=== PATIENT | female | born 1985 | race Caucasian/White ===

== ENCOUNTER → 2024-01-10 09:12 | Outpatient (BNVA) | payer OTHER, SELFPAY | PROVIDERS: PCP Nurse Practitioner; Visit Provider Nurse Practitioner | DX: Z13.6 Encounter for screening for cardiovascular disorders (principal) | CPT/HCPCS: 80053; 80061 ==

== ENCOUNTER → 2024-02-22 14:08 | Outpatient (BNVA) | payer OTHER, BC, SELFPAY | PROVIDERS: PCP Nurse Practitioner; Visit Provider Nurse Practitioner Women's Health | DX: N92.6 Irregular menstruation, unspecified (principal) | CPT/HCPCS: 81025 ==

== ENCOUNTER 2024-09-22 04:05 | Outpatient (CLI) | payer BC, MEDICAID, SELFPAY ==
[2024-09-22 04:05] VITALS: BMI 42.7
[2024-09-22 04:29] VITALS: BP 149/87; PULSE 75
[2024-09-22 04:44] VITALS: BP 148/87; PULSE 75
[2024-09-22 05:01] VITALS: BP 146/81; PULSE 70
[2024-09-22 05:09] VITALS: BP 140/79; PULSE 67
[2024-09-22 05:27] VITALS: BP 140/79; PULSE 67; O2SAT 100
== END 2024-09-22 05:27 | disposition home or self-care (01) ==
LOC: OPOB 04:11 → OBGYN 04:11
PROVIDERS: PCP Family Medicine; Visit Provider Family Medicine
DX: O26.899 Other specified pregnancy related conditions, unspecified trimester (principal); Z3A.00 Weeks of gestation of pregnancy not specified; M54.9 Dorsalgia, unspecified
CPT/HCPCS: 59025; 99211

== ENCOUNTER 2024-09-23 14:03 | Inpatient (IN) | payer BC, MEDICAID, SELFPAY ==
[2024-09-23] VITALS (29 sets, daily range): BP systolic 89–159; BP diastolic 50–99; PULSE 52–94; RESP 16–18; TEMP 36.7–36.9; O2SAT 96–98; BMI 39.6
[2024-09-23 13:35] LABS: Basophils % 0.2 %; Eosinophils # 0.5 10^3/uL (0.0-0.8); Eosinophils % 4.3 %; Lymphocytes # 2.1 10^3/uL (0.8-4.8); Mean Corpuscular HGB Conc 33.4 g/dL (30-55); Mean Corpuscular Hemoglobin 29.8 pg (27-33); Mean Corpuscular Volume 89.3 fl (85-98); Mean Platelet Volume 11.3 fL (7.4-10.4); Monocytes % 7.9 %; Neutrophils # 8.45 10^3/uL (1.8-7.7); Neutrophils % 69.4 %; Nucleated Red Blood Cells % 0 %; Platelet Count 196 10^3/cmm (157-399); Red Blood Count 4.59 10^6/uL (3.85-5.65); Red Cell Distribution Width 13.4 % (12.1-15.1); White Blood Count 12.17 10^3/uL (3.29-11.43)
[2024-09-23] MEDS: lactated ringers 1,000 ML 999 ML IV (13:59)
[2024-09-23] MEDS: famotidine 20 mg/2 mL INJ IVP (13:59)
[2024-09-23] MEDS: ceFAZolin 2,000 mg SDV 2000 MG IVP (14:00)
[2024-09-23] MEDS: metoclopramide 5 mg/mL SDV 2 mL 10 MG IVP (14:00)
--- NOTE | 2024-09-23 14:49 | P.HP_ITS ---
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 She was checked and found to grossly ruptured. Her cervix was 2 cm dilated. Her membranes ruptured several hours prior to arrival to hospital. Otherwise, other than her history of a section, and her advanced maternal age, her has been relatively unremarkable. She received care in her first [address] Díaz. She was desirous of doing a and switch to me because I was willing to consider . We had a long discussion concerning the pros and cons of VBACs versus repeat sections. At the end of that discussion, she does elected to proceed with a repeat section. We have discussed the risks of bleeding, infection, and damage to intra-abdominal organs earlier in her as well as today. We once again discussed the possibility of doing a today, and she is clear that she would rather proceed with a section. Present Details : 3 Para: 1 Labs Rubella: Immune RPR: Negative GBS: Negative Review of Systems 2 General: Reports: 10 or more systems reviewed and unremarkable except in HPI and below Const: Reports: fatigue; Denies: fever(s) Eyes: Denies: change in vision Card: Denies: chest pain Musc: Reports: back pain Jose/Lymph: Denies: easy bruising Medications/Allergies Home Medications ?Medication ?Instructions ?Recorded ?Confirmed ?Last Taken ?Type budesonide-formoterol HFA 160 2 puff inhalation Q12H # 10.2 grams 01/10/24 09/23/24 Unknown Rx mcg-4.5 mcg/actuation aerosol inhaler triamcinolone acetonide 0.1 % 1 applic topical DAILY P RN itching 01/10/24 09/23/24 Unknown Rx topical cream #30 grams Allergies Allergy/AdvReac Type Severity Reaction Status Date / Time seasonal Allergy Mild ALGY-Wheezi Uncoded 02/22/24 14:39 ng PFSH 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 Family History Other Adopted Social History Smoking and tobacco/nicotine status: never used tobacco/nicotine Alcohol intake: former Substance/Drug Use: unknown Adopted: Yes Caregiver/support person: No Lives independently: Yes Household members: significant other and children Housing: House Marital status: Life Partner Number of children: 1 service: No Current occupational status: unemployed Current occupational exposures/hazards: No Pets and animals: Yes Do you think of yourself as: Straight/Heterosexual Current gender identity: Female History History History 2 2 Term 1 0 Miscarriages/Ectopic 1 Living Children 1 Vitals/I&O/Wt Last Vital Signs Pulse 81 09/23/24 14:26 Resp 16 09/23/24 13:28 BP 137/84 09/23/24 14:26 O2 Del Method Room Air 09/23/24 13:18 Weight last 48 hrs Weight 231 lb Physical Exam 2 Const: COMMON NORMALS: patient oriented x3 and alert HENMT: COMMON NORMALS: moist oral mucous membranes HEAD & SCALP: normal to inspection Chest: COMMONS NORMALS: normal inspection of the chest Resp: COMMON NORMALS: clear to auscultation bilaterally AUSCULTATION: clear to auscultation bilaterally Cardio: COMMON NORMALS: regular rate and regular rhythm RATE: regular rate RHYTHM: regular rhythm GI: INSPECTION: Yes normal to inspection and Yes other (Gravid) Extremity: COMMON NORMALS: normal to inspection GENERAL: Yes edema (Trace) Neuro: COMMON NORMALS: patient oriented x3, moves all extremities and no sensory deficits noted SENSORIUM/ORIENTATION: Yes alert Psych: COMMON NORMALS: mental status grossly normal Skin: COMMON NORMALS: no rashes or lesions noted GENERAL SKIN EXAM: no rashes or lesions noted Data 09/23/24 13:20 Results Labs OB ([facility]): 2 Obstetrics 06/20/24 Blood Type B Positive 09/23/24 Antibody Screen Negative 09/23/24 Hct 41.0 % (36-47) 09/23/24 Hgb 13.70 g/dL (11.27-16.99) 09/23/24 Rho(D) Type Rh positive 09/23/24 Plt Count 196 10^3/cmm (157-399) 09/23/24 HCG, Qual Positive (Negative) H 02/22/24 A&P Assessment and plan (1) 39 weeks gestation of : We will proceed with a lower transverse section. The patient and her have no further questions and wished to proceed. (2) History of section: (3) Spontaneous rupture of membranes: PDMP PDMP Reviewed: Not Reviewed Attestations 2 Medical Necessity Statement*: I anticipate routine and post care Coding Level of Care Code Acute Code for Chg Fwd Diagnoses 39 weeks gestation of Z3A.39 History of section Z98.891 Spontaneous rupture of membranes
--- NOTE | 2024-09-23 14:50 | P.ANESUD_ITS ---
Pre-Anesthetic Update Pre-Anesthetic Assessment: Date of Surgery/Procedure: 09/23/24 Preop Maggy gnosis: repeat Any changes to Pre-Anesthetic Assessment?: No Last Intake: Intake Last Liquid Date 09/23/24 Last Liquid Time 10:30 Last Solid Date 09/22/24 Last Solid Time 23:30 Labs Last 48hrs: Short CBC 09/23/24 Range/Units 13:20 WBC 12.17 H (3.29-11.43) 10^ 3/uL Hgb 13.70 (11.27-16.99) g/ dL Hct 41.0 (36-47) % MCV 89.3 (85-98) fl Plt Count 196 (157-399) 10^3/c mm Neut % (Auto) 69.4 % Neut # (Auto) 8.45 H (1.8-7.7) 10^3/u L Blood Bank 09/23/24 13:20 Blood Type B Positive Rho(D) Type Rh positive Antibody Screen Negative Vitals: Pulse Rate 81 09/23/24 14:26 Respiratory Rate 16 09/23/24 13:28 Respiratory Effort Spontaneous, Non- Labored 09/23/24 13:18 Respiratory Depth Normal 09/23/24 13:18 Respiratory Patter n Normal 09/23/24 13:18 Blood Pressure 137/84 09/23/24 14:26 Oxygen Delivery Me thod Room Air 09/23/24 13:18 Exam: Pre-Anes Outpt Exam: alert and oriented x 3 Cardiac Studies: No Data to Display
--- NOTE | 2024-09-23 16:05 | PM.OP ---
Operative Report Date of procedure: September 23, 2024 Pre-op diagnosis: 1. 39-year-old 3 para 1-0-0-1 at 39 weeks and 5 days presenting with spontaneous rupture membranes 2. History of lower transverse section Post-op diagnosis: Same Procedure done: Repeat low-transverse section Specimens removed/disposition: 1. Female infant with a weight of 7 pounds 13 ounces and Apgars of 8 and 9 2. Placenta with a three-vessel cord delivered intact Surgeon: Trev Savage MD Estimated blood loss (mL): 800 Complications: None Procedure: The patient was brought back to the operating room where she was prepped and draped in usual sterile fashion. Anesthesia was found to be adequate. A lower transverse skin incision was then made with a #10 blade. I then dissected down to the underlying subcutaneous tissue until arriving at the prerectal fascia. The fascia was then nicked with the scalpel bilaterally. The fascial incisions were then carried laterally with Kiran scissors. Attention was then turned to the superior aspect of the incision which was grasped with kochers and tented up away from the underlying rectus abdominis muscles. The muscles were then dissected away from the fascia manually, and later with Kiran scissors. Attention was then turned to the inferior aspect of the incision, and the fascia was dissected away from the underlying muscle in similar fashion. The rectus abdominis muscles were then spread manually. The peritoneum was entered manually. Excellent visualization of the uterus was noted. A lower transverse uterine incision was then made with a #10 blade. Upon arriving at the intrauterine cavity, the uterine incision was then extended manually. The infant was noted to be in vertex position. The baby was delivered without difficulty. After delivery of the head, the mouth and nose were suctioned at the site of the incision. There was no meconium. There was a nuchal cord x 1 which was easily reduced prior to delivery of the head. The baby was then completely delivered and placed on the abdomen. The cord was cut and clamped. The baby was then handed to the waiting nurse. The placenta was removed intact. The uterus was externalized. The intrauterine cavity was cleansed of any remaining debris. The uterine incision was reapproximated in 2 layers. The first layer was performed with 0 Vicryl in a running locked stitch. The second layer was an imbricating stitch also using 0 Vicryl. The uterus was replaced into the abdomen. The peritoneum was then irrigated with warm saline. I reexamined the uterine incision and found it to be hemostatic. The rectus abdominis muscles were then reapproximated using 0 Vicryl in a running stitch. The fascia was then reapproximated using 0 Vicryl in running stitch. The subcutaneous tissue was then reapproximated using 0 Vicryl in a running stitch. The skin was then reapproximated using 4-0 Vicryl in a running subcuticular stitch. A sterile dressing was placed. All counts were correct x2. Both the mother and baby were in stable condition.
--- NOTE | 2024-09-23 16:28 | PC.NURSE ---
1600 STILL IN OR
[2024-09-23] MEDS: ketorolac 30 mg/mL INJ IVP (22:26)
[2024-09-23] MEDS: docusate sodium 100 mg Capsule PO (22:26)
[2024-09-24 03:49] LABS: Hematocrit 36.3 % (36-47); Mean Corpuscular HGB Conc 33.9 g/dL (30-55); Mean Corpuscular Hemoglobin 30.8 pg (27-33); Mean Corpuscular Volume 90.8 fl (85-98); Mean Platelet Volume 10.7 fL (7.4-10.4); Platelet Count 184 10^3/cmm (157-399); Red Cell Distribution Width 13.2 % (12.1-15.1); White Blood Count 13.19 10^3/uL (3.29-11.43)
[2024-09-24] MEDS: ketorolac 30 mg/mL INJ IVP ×2 (04:19→11:12)
[2024-09-24 04:21] VITALS: BP 121/69; PULSE 75
[2024-09-24 04:23] VITALS: RESP 15; TEMP 36.9
[2024-09-24 09:19] VITALS: BP 132/76; PULSE 67
[2024-09-24] MEDS: PRENATAL VIT NO.130/IRON/FOLIC 1 EACH TABLET PO (09:20)
[2024-09-24] MEDS: docusate sodium 100 mg Capsule PO (09:20)
[2024-09-24] MEDS: ferrous sulfate EC 325 mg Tablet PO (09:20)
[2024-09-24 09:23] VITALS: TEMP 36.6
--- NOTE | 2024-09-24 17:39 | P.DS_ITS ---
Discharge Providers HAND TIRE TRIMMER Date of Admission: 09/23/24 14:03 Date of Discharge: 09/24/24 Attending Provider at Admission: Trev Savage MD Attending Provider at Discharge: Trev Savage MD Primary Care Provider: Trev Savage MD Diagnoses at Discharge Discharge Diagnosis (1) 39 weeks gestation of : Status: Acute (2) History of section: Status: Acute Permanent problem details: Primary performed in [place] for malpresentation. (3) Spontaneous rupture of membranes: Status: Acute Reason for Visit Reason for Visit: Poss SROM Hospital Course Hospital Course The patient presented to the hospital with spontaneous rupture membranes. Due to her history of section, a repeat section was performed. The was unremarkable. Her course was also unremarkable. Her bleeding was within normal limits. Her pain was well-controlled. She breast-fed well. Information Peripartum Data: Infant Delivery Method: Physical Exam Narrative: She is in no acute distress Lungs are clear auscultation bilaterally Her heart has a regular rate and rhythm Her fundus is below the umbilicus and firm Her dressing is clean, dry and intact Her extremities have trace edema Urinary Catheter Management: Campbell: Cath Placed During This Visit: yes, but has since been removed by the nurse Reason for Continuing Indwelling Catheter: Decision to DC Catheter Urinary Catheter Date of Insertion: 09/23/24 Urinary Catheter Time of Insertion: 15:00 Date Urinary Catheter Removed: 09/23/24 Time Urinary Catheter Discontinued: 22:35 History History History 2 Term 1 0 Miscarriages/Ectopic 1 Living Children 1 Discharge Data Studies Completed and Pending Laboratory Results WBC 13.19 10^3/uL (3.29-11.43) H 09/24/24 03:40 RBC 4.00 10^6/uL (3.85-5.65) 09/24/24 03:40 Hgb 12.30 g/dL (11.27-16.99) 09/24/24 03:40 Hct 36.3 % (36-47) 09/24/24 03:40 MCV 90.8 fl (85-98) 09/24/24 03:40 MCH 30.8 pg (27-33) 09/24/24 03:40 MCHC 33.9 g/dL (30-55) 09/24/24 03:40 RDW 13.2 % (12.1-15.1) 09/24/24 03:40 Plt Count 184 10^3/cmm (157-399) 09/24/24 03:40 MPV 10.7 fL (7.4-10.4) H 09/24/24 03:40 Neut % (Auto) 69.4 % 09/23/24 13:20 Lymph % (Auto) 17.0 % 09/23/24 13:20 [place] % (Auto) 7.9 % 09/23/24 13:20 Eos % (Auto) 4.3 % 09/23/24 13:20 Baso % (Auto) 0.2 % 09/23/24 13:20 Neut # (Auto) 8.45 10^3/uL (1.8-7.7) H 09/23/24 13:20 Lymph # (Auto) 2.1 10^3/uL (0.8-4.8) 09/23/24 13:20 [place] # (Auto) 1.0 10^3/uL (0.2-0.9) H 09/23/24 13:20 Eos # (Auto) 0.5 10^3/uL (0.0-0.8) 09/23/24 13:20 Baso # (Auto) 0.0 10^3/uL (0.0-0.1) 09/23/24 13:20 Nucleated RBC % (auto) 0 % 09/23/24 13:20 Nucleated RBCs # 0.0 /100WBC 09/23/24 13:20 Blood Type B Positive 09/23/24 13:20 Rho(D) Type Rh positive 09/23/24 13:20 Antibody Screen Negative 09/23/24 13:20 Vitals Last Vital Signs Temp 97.9 F 09/24/24 09:23 Pulse 67 09/24/24 09:19 Resp 15 09/24/24 04:23 BP 132/76 09/24/24 09:19 Pulse Ox 97 09/23/24 16:40 O2 Del Method Room Air 09/23/24 16:40 Results Labs OB ([facility]): Obstetrics US 06/20/24 Blood Type B Positive 09/23/24 Antibody Screen Negative 09/23/24 Hct 36.3 % (36-47) 09/24/24 Hgb 12.30 g/dL (11.27-16.99) 09/24/24 Rho(D) Type Rh positive 09/23/24 Plt Count 184 10^3/cmm (157-399) 09/24/24 HCG, Qual Positive (Negative) H 02/22/24 Discharge Plan Discharge Patient Disposition: Home Condition: Stable Prescriptions: New hydrocodone-acetaminophen 5-325 mg Tablet 1 tab PO Q6H PRN (Reason: Moderate To Severe Pain) Qty: 28 0RF docusate sodium 100 mg Capsule 100 mg PO BID Qty: 20 0RF Vitamin 27 mg iron- 800 mcg Tablet 1 tab PO DAILY Qty: 90 0RF ibuprofen 800 mg Tablet 800 mg PO TID Qty: 45 0RF Continued budesonide-formoterol 160-4.5 mcg/actuation HFA aerosol inhaler 2 puff inhalation Q12H Qty: 10.2 5RF Discontinued triamcinolone acetonide 0.1 % cream 1 applic topical DAILY PRN (Reason: itching) Qty: 30 0RF Rx Instructions: apply to arm when needed Discharge Orders: Discharge Order (Routine); Ordered 09/24/24 Ordered By: Trev Savage Referrals: Trev Savage MD [Primary Care Provider] - 7-10 days Discharge Diet: Usual diet Discharge Activity: Limit activity as instructed Patient Instructions: Depression (DC), Bleeding (DC), Opioid Safety (DC), Preeclampsia and Eclampsia After Delivery (GEN), Hemorrhage (DC), OB Discharge Report, OB Food/Drug Interaction Guide, OB Care at Home, Opioid Safety, OB Home Care, OB Vaginal Deliveries Discharge Attestations HAND TIRE TRIMMER Time Spent in Discharge Care*: less than 30 min Coding Level of Care Code Acute Code for Chg Fwd Diagnoses 39 weeks gestation of Z3A.39 History of section Z98.891 Spontaneous rupture of membranes
[2024-09-24 19:30] VITALS: BP 140/87; PULSE 92; RESP 16; TEMP 37
[2024-09-24 19:39] VITALS: BP 140/87; PULSE 92; RESP 16; TEMP 37
[2024-09-24] MEDS: acetaminophen 325 mg Tablet 650 MG PO (19:49)
== END 2024-09-24 20:05 | disposition home or self-care (01) | DRG 788 ==
LOC: OPOB 09-25 14:06
PROVIDERS: Admitting Provider Family Medicine; PCP Family Medicine; Visit Provider Family Medicine
PROC: 10D00Z1 Extraction of Products of Conception, Low, Open Approach (ICD-10-PCS; CPT 59514; principal; 2024-09-23 15:30)
DX: O34.211 Maternal care for low transverse scar from previous cesarean delivery (principal); N85.8 Other specified noninflammatory disorders of uterus; O69.81X0 Labor and delivery complicated by cord around neck, without compression, not applicable or unspecified; Z3A.39 39 weeks gestation of pregnancy; Z37.0 Single live birth
CPT/HCPCS: 36415; 51702; 59025; 59409; 85025; 85027; 86850; 86900; 96374; 96376; 99211; J0690; J1885; J2274; J2405; J2765; J3010; J3490; J7120; J9999

== ENCOUNTER 2024-10-21 17:47 | Emergency (ER) | payer BC, MEDICAID, SELFPAY ==
[2024-10-21 17:48] VITALS: BP 126/84; PULSE 75; TEMP 36.6; O2SAT 97; BMI 33.7
[2024-10-21 18:45] VITALS: BP 103/66; PULSE 74; RESP 16; O2SAT 94
--- NOTE | 2024-10-21 19:12 | ED_ITS ---
HPI - Recheck/Abnormal Lab/Rx General: Chief Complaint: Recheck/Abnormal Lab/Rx Stated Complaint: incision opening up Time Seen by Provider: 10/21/24 18:44 Source: patient Mode of arrival: ambulatory Limitations: no limitations History of Present Illness: Patient is a 39-year-old female that presents to the emergency department with a slight opening of her scar. Patient reports she had a on September 23 and it has been healing well. She states last night she noticed there was a small area on the left side of the scar that was opening up. She has had some intermittent clear drainage from the area. She denies any fever or chills. She denies any significant abdominal pain. She denies any nausea or vomiting. She presents to the emergency department for a recheck. complaint: wound re-check Related Data Previous Rx's ?Medication ?Instructions ?Recorded docusate sodium 100 mg capsule 100 mg PO BID #20 caps 09/24/24 hydrocodone 5 mg-acetaminophen 325 1 tab PO Q6H PRN Mo derate To 09/24/24 mg tablet Severe Pain #28 tabs ibuprofen 800 mg tablet 800 mg PO TID #45 tabs 09/24 vits no.130-ferrous fum 1 tab PO DAILY #90 ta bs 09/24/24 27 mg iron-folic acid 800 mcg tablet ( Vitamin) budesonide-formoterol HFA 160 2 puff inhalation Q12H # 10.2 grams 10/03/24 mcg-4.5 mcg/actuation aerosol inhaler loratadine 10 mg tablet 10 mg PO DAILY #30 tabs 09/27 08/21 mupirocin 2 % topical ointment 1 applic topical BID #2 2 grams 10/21/24 (Centany) Allergies Allergy/AdvReac Type Severity Reaction Status Date / Time seasonal Allergy Mild ALGY-Wheezi Uncoded 10/21/24 17:55 ng Review of Systems General: Reports: 10 or more systems reviewed and unremarkable except in HPI and below Const: Denies: fever(s) or chills Eyes: Denies: change in vision ENMT: Denies: throat pain or ear or mastoid pain Card: Denies: chest pain or edema Resp: Reports: non-productive cough (Occasional, patient reports she has a history of asthma and seasonal allerg) and wheezing (Intermittent, none now. Patient has a history of asthma.); Denies: dyspnea or productive cough GI: Reports: other (Small area of dehiscence of on the left); Denies: abdominal pain, nausea or vomiting : Denies: flank pain, difficulty voiding or dysuria Musc: Denies: neck pain, back pain or extremity swelling Skin/Breast: Reports: other (Slight dehiscence of scar) Neuro: Denies: headache(s), numbness in extremities or weakness in extremities Psych: Denies: anxiety Endo: Denies: polyuria or polydipsia Jose/Lymph: Denies: petechiae All/Imm: Denies: urticaria, throat swelling or tongue swelling PFSH ED PFSH: Medical History Eczema Environmental and seasonal allergies Asthma, moderate persistent Surgical History History of section (~2015) Primary performed in [place] for malpresentation. Family History Other Adopted Social History (Updated 10/21/24 @ 19:15 by JANET Watkins) Smoking and tobacco/nicotine status: former use of tobacco/nicotine Alcohol intake: former Substance/Drug Use: unknown Adopted: Yes Caregiver/support person: No Lives independently: Yes Household members: significant other and children Housing: House Marital status: Life Partner Number of children: 1 service: No Current occupational status: unemployed Current occupational exposures/hazards: No Pets and animals: Yes Do you think of yourself as: Straight/Heterosexual Current gender identity: Female Female Reproductive History: Para: 1 Spontaneous abortions: Yes Physical Exam Const: COMMON NORMALS: no acute distress and alert GENERAL APPEARANCE: cooperative HENMT: COMMON NORMALS: normocephalic, atraumatic, external ears normal and Normal external nose present HEAD & SCALP: normocephalic and atraumatic FACE & SINUS: normal facial exam NOSE: Normal external nose present EXTERNAL EAR: Yes external ears normal Eye: COMMON NORMALS: conjunctivae normal CONJUNCTIVA: Yes conjunctivae normal Neck/C-Spine: COMMON NORMALS: full ROM Resp: COMMON NORMALS: normal respiratory effort and clear to auscultation bilaterally AUSCULTATION: clear to auscultation bilaterally, no crackles, no rales, no rhonchi and no wheezes Cardio: COMMON NORMALS: regular rate and regular rhythm RATE: regular rate RHYTHM: regular rhythm GI: COMMON NORMALS: Soft to palpation INSPECTION: No abdominal wall ecchymosis and Yes incision (3 mm area of dehiscence on the left side of C- section incision) PALPATION: Yes Soft to palpation and Yes Tenderness to palpation present (GI) (Mild diffuse tenderness with no guarding or rebound tenderness) RECTAL EXAM: deferred Back/Pelvis: COMMON NORMALS: no thoracic nor lumbar tenderness and thoraco- lumbar ROM normal Extremity: COMMON NORMALS: full ROM, no calf tenderness and no pedal edema Neuro: SENSORIUM/ORIENTATION: Yes alert SPEECH: speech normal Psych: COMMON NORMALS: cooperative and speech normal ATTITUDE: Yes calm SPEECH: Yes normal speech Skin: NARRATIVE SKIN EXAM: There is a healing incision with some mild superficial dehiscence. There is no draining or erythema around the incision. The patient has Steri- Strips that are still present on the center to the right side of the incision. WOUNDS: Yes surgical site (There is no erythema or drainage noted at this time.) Course Vital Signs: Vital signs: Vital Signs Temperature 97.9 F 10/21/24 17:48 Pulse Rate 74 10/21/24 18:45 Respiratory Rate 16 10/21/24 18:45 Blood Pressure 103/66 10/21/24 18:45 Pulse Oximetry 94 10/21/24 18:45 Oxygen Delivery Me thod Room Air 10/21/24 17:48 MDM - Recheck/Abnormal Lab/Rx Medical Decision Making Patient was advised of the exam findings. She is afebrile and has a normal heart rate here. There is no significant erythema around the incision site. There is a small area of superficial dehiscence on the left side. There is no active drainage noted at this time. The patient was advised using the mupirocin ointment twice a day as directed and follow-up with her BUSINESS INSIGHT AND ANALYTICS MANAGER this week for recheck. Patient was advised to watch for any signs of infection such as increased pain, redness, fever, pus draining from the site and return to the emergency department immediately with any worsening symptoms. The patient expressed understanding. Differential Diagnosis Likely encounter for wound recheck No radiology studies performed this visit Critical Care Time Critical Care Time: Critical Care Time: No Discharge Plan Discharge Patient Disposition: Home Clinical Impression: Superficial dehiscence of operation wound Condition: Stable Prescriptions: New mupirocin [Centany] 2 % ointment 1 applic topical BID Qty: 22 0RF No Action budesonide-formoterol 160-4.5 mcg/actuation HFA aerosol inhaler 2 puff inhalation Q12H Qty: 10.2 2RF loratadine 10 mg tablet 10 mg PO DAILY Qty: 30 5RF ibuprofen 800 mg Tablet 800 mg PO TID Qty: 45 0RF hydrocodone-acetaminophen 5-325 mg Tablet 1 tab PO Q6H PRN (Reason: Moderate To Severe Pain) Qty: 28 0RF docusate sodium 100 mg Capsule 100 mg PO BID Qty: 20 0RF Vitamin 27 mg iron- 800 mcg Tablet 1 tab PO DAILY Qty: 90 0RF Discharge Orders: Discharge ED (Routine); Ordered 10/21/24 Ordered By: Chino Rodriguez Referrals: Trev Savage MD [Primary Care Provider, [facility]] Discharge Diet: Advance as tolerated Discharge Activity: Limit activity as instructed Patient Instructions: Wound Dehiscence (ED), Opioid Safety, Pain Management Activity Restrictions/Additional Instructions: Use the mupirocin ointment twice a day for 10 days as directed. Do not apply it down into the wound but use it on the skin outside the wound. Your prescription was sent electronically to the [facility] pharmacy in [facility]. Do not soak the wound in water. You may shower once a day and then blot the wound dry and apply the ointment after washing it. You may use a maxi pad to help cover the wound if it continues to drain. Follow-up with your BUSINESS INSIGHT AND ANALYTICS MANAGER this week for further evaluation and treatment. You may continue to use your prescribed ibuprofen as directed. Return to the emergency department with any worsening symptoms such as fever, redness, pus draining from the wound or any other worsening symptoms. Print Language: Marshallese Coding Level of Care Code ED Composite Layup Worker for Uma Lazaro
[2024-10-21] MEDS: mupirocin oint 22 gm 1 APPLIC TOPICAL (19:30)
[2024-10-21 19:35] VITALS: BP 126/78; PULSE 81; RESP 16; O2SAT 95
== END 2024-10-21 19:36 | disposition home or self-care (01) ==
PROVIDERS: Emergency Provider Physician Assistant; PCP Family Medicine
DX: O90.0 Disruption of cesarean delivery wound (principal)
CPT/HCPCS: 12345; 99283; J9999